=== PATIENT | male | born 1945 | race Caucasian/White ===

== ENCOUNTER 2017-03-01 05:37 | Inpatient (IN) | payer MEDICARE ==
--- NOTE | 2017-02-23 10:07 | HP ---
HISTORY OF PRESENT ILLNESS: Mr. White is a 71-year-old male who presents with pain in the lumbar spine and cervical neck. He use to have cervical radiculopathy, but since he has been getting epidural steroid injections, his cervical symptoms have resolved. Low back pain and thoracic pain are bilaterally. He has had L1-L5 lamine[place] [address] Anthony. The pain is characterized as a burning sensation. He is having some symptoms of neurogenic claudication. He had trouble going from sitting to standing, which seems to aggravate the pain. The pain is made slightly better with lying down on the floor and his legs up. He had physical therapy and has had several L- spine injections with Dr. Koo. He has had occasional loss of control of his legs, 5-6 times in the past month he has been standing and experienced warm tingling sensation of the sacrum and anterior thighs. This has eventually progressed to loss of control of his legs. To get rid of this sensation he lies down in the position, pulls his knees to his chest. After a minute or 2 the sensation is gone and the legs work again. There is no arm sensations at that time. Second his neck hurts. The pain radiates from the left greater than the right shoulder. There is numbness in the left ring and smallest finger. Sometimes there is some numbness on the right as well. REVIEW OF SYSTEMS: A 10-point review of systems completed is otherwise negative unless stated above in the HPI. PAST MEDICAL HISTORY: Arthritis and joint problems. PAST SURGICAL HISTORY: Back surgery, neck surgery. FAMILY HISTORY: Father is , diagnosed with cancer. His mother is , diagnosed with unknown. SOCIAL HISTORY: The patient is a nonsmoker, denies any alcohol or drug use. MEDICATIONS: 1. Taking terazosin HCL. 2. Avodart. 3. Hydrocodone acetaminophen. ALLERGIES: No known drug allergies. PHYSICAL EXAMINATION: HEENT: Normocephalic, atraumatic. Hearing intact. Moist mucous membranes. Trachea is midline. EYES: Pupils are equal and reactive to light. Extraocular muscles are intact. Sclerae is white, nonicteric. PSYCHIATRIC: Normal mood and affect. CARDIOVASCULAR/PULMONARY: No cyanosis or clubbing noted. Intact pedal pulses bilaterally. MUSCULOSKELETAL: 5/5 strength in bilateral iliopsoas, quadriceps, hamstrings, right tibialis anterior and extensor hallucis longus. Sensory deficits to bilateral L3 nerve distribution. Tender to palpation in the midline lumbar spine. EXTREMITIES: Upper extremity, 5/5 strength in bilateral biceps and triceps. Full range of motion. No sensory deficits bilaterally. RESPIRATORY: Even respirations all lung freed, sound clear with no wheezing or crackles. NEUROLOGIC: Cerebellar exam: There is no truncal ataxia. Gait and station are normal. Tandem gait is off balance. Motor exam: There is normal motor in deltoids, biceps, triceps, wrist extensors, flexors and interossei. No sensory level on the back. Reflex exam; 1 BF clonus bilaterally. IMAGING: C3-4, 4-5, 7-1 stenosis prior C5-C7 fusion elsewhere. T-spine MRI; T11-12 stenosis with cord compression and moderate T10-11 stenosis. L-spine; open canal foraminal disease at L1-L5. ASSESSMENT: 1. 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 2. Spinal stenosis, thoracic region. 3. Spinal stenosis of the cervical region. PLAN: EMG and NCV have been obtained. Dr. Anthony reviewed the EMG. Plan; most concerned about the sciatic leg weakness and falls, altered sensation from the waist down, incontinence. Dr. Anthony offered a thoracic laminectomy T8 through T12 for thoracic spinal stenosis. Informed consent was given. The indications, risks, benefits, alternatives, and expected results from surgery were discussed. The risks of the procedure include, but were not limited to bleeding, infection, CSF leak, nerve damage, weakness, cauda equina injury, incontinence, spinal cord injury, arachnoiditis, paralysis, ventilator dependence, wheelchair dependence, loss of vision, cardiopulmonary complications of anesthesia or . Long-term complications discussed included, but were not limited to spinal instability and future surgery. He understands the risk and is willing to proceed with the surgery. JIM
[2017-02-28 12:25] VITALS: BMI 33.3
[2017-03-01] MEDS ORDERED: Midazolam HCl 2 mg/2 ml Vial ONE (06:12)
[2017-03-01] MEDS ORDERED: Fentanyl 100 MCG/2 ML VIAL ONE ×3 (06:12→11:47)
[2017-03-01] MEDS ORDERED: Lidocaine 1% w/Epinephrine 1:200K 30 ML VIAL ONE (06:21)
[2017-03-01] MEDS ORDERED: Thrombin 5000 UNITS/5 ML VIAL ONE ×2 (06:21→12:43)
[2017-03-01] MEDS ORDERED: Sodium Chloride 0.9% 10 ML ONE (06:21)
[2017-03-01] MEDS ORDERED: Fentanyl 250 MCG/5 ML VIAL ONE (06:23)
[2017-03-01] MEDS ORDERED: Sodium Chloride 0.9% 20 ML ONE (06:25)
[2017-03-01] MEDS ORDERED: Bupivacaine 0.25% HCL 30 ML VIAL ONE (06:25)
[2017-03-01] MEDS ORDERED: Bupivacaine PF 0.5% 30 ML VIAL ONE (06:25)
[2017-03-01 06:33] LABS: #Basophils 0.1 thou/uL (0.0-0.2); #Eosinphils 0.4 thou/uL (0.0-0.7); #Lymphocytes 1.9 thou/uL (1.20-3.40); #Monocytes 0.8 thou/uL (0.11-0.59); %Basophils 0.8 % (0.0-1.0); %Eosinophils 4.9 % (0.0-10.0); %Lymphocytes 23.2 % (21.0-51.0); %Monocytes 9.8 % (0.0-10.0); %Neutrophils 61.4 % (42.0-75.0); Hemoglobin 14.1 g/dL (14.0-18.0); Mean Corpuscular HGB CONC 33.3 g/dL (32.0-36.0); Mean Corpuscular Hemoglobin 30.5 pg (27.0-31.0); Mean Corpuscular Volume 91.6 fl (80.0-94.0); Mean Platelet Volume 7.1 fL (7.4-10.4); Platelet Count 222 thou/uL (130-400); RBC Distribution Width 12.5 % (11.5-14.5); Red Blood Cell (RBC) Count 4.64 mill/uL (4.70-6.10); White Blood Cell (WBC) Count 8.2 thou/uL (4.8-10.8)
[2017-03-01 06:40] LABS: INR-International Normal Ratio 1.1; PTT 36.9 SEC (22.9-36.1); Prothrombin Time 14.3 SEC (12.0-14.7)
[2017-03-01] MEDS ORDERED: CEFAZOLIN/Water 2 GM/20 ML SYRINGE ONE (06:49)
[2017-03-01 07:18] LABS: Anion Gap 13 mmol/L (10-20); BUN (Urea Nitrogen) 21 mg/dL (8.4-25.7); Calc. Creatinine Clearance 62 mL/min (70-130); Calcium 9.8 mg/dL (7.8-10.44); Carbon Dioxide 23 mmol/L (23-31); Chloride 104 mmol/L (98-107); Estimated GFR-MDRD 48; Glucose 117 mg/dL (80-115); Potassium 3.9 mmol/L (3.5-5.1); Sodium 136 mmol/L (136-145)
[2017-03-01] MEDS ORDERED: Scopolamine 1.5 mg/72 hour Patch ONE (08:21)
[2017-03-01] MEDS ORDERED: Albumin 5% 500 ML ONE (09:38)
[2017-03-01] MEDS ORDERED: Meperidine HCl/PF 25 MG/ML VIAL SLOW IVP PRN (10:03)
[2017-03-01] MEDS ORDERED: Morphine Sulfate 2 MG/ML SYRINGE SLOW IVP PRN (10:03)
[2017-03-01] MEDS ORDERED: HYDROmorphone 2 MG/ML VIAL SLOW IVP PRN (10:03)
[2017-03-01] MEDS ORDERED: Promethazine HCl 25 MG/ML VIAL SLOW IVP PRN (10:03)
[2017-03-01] MEDS ORDERED: Glycopyrrolate 0.2 MG/ML 5 ML SYRINGE ONE ×2 (10:33→12:43)
[2017-03-01] MEDS ORDERED: Bacitracin Zinc Ointment 30 gm TUBE ONE (10:40)
[2017-03-01] MEDS ORDERED: Acetaminophen/Codeine 30-300mg Tablet PO PRN (10:44)
[2017-03-01] MEDS ORDERED: Cyclobenzaprine 10 MG TAB PO PRN (10:44)
[2017-03-01] MEDS ORDERED: Ondansetron HCl/PF 4 MG/2 ML Vial IVP PRN (10:44)
[2017-03-01] MEDS ORDERED: Morphine 4 MG/ML Carpuject SLOW IVP PRN (10:44)
[2017-03-01] MEDS ORDERED: OXYCODONE HCL PO PRN (10:47)
[2017-03-01] MEDS ORDERED: Docusate 100 MG CAP PO PRN (10:47)
--- NOTE | 2017-03-01 12:00 | OP ---
DATE OF PROCEDURE: 03/01/2017 SURGEON: Rubina Anthony M.D. CHIP TUNER: Wilton Horvath PA-C. PREOPERATIVE INDICATION: Prevent neurological deterioration. 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 OPERATIVE PROCEDURE: Decompressive laminectomy, partial medial facetectomy and foraminotomy at T9, T 10, T11, T12. PREOPERATIVE MEDICATION: Ancef 2 grams IV. DRAIN NUMBER: One. DRAIN TYPE: 10 [place]. OPERATIVE DICTATION: The patient was brought to the operating room. General endotracheal anesthesia was induced. The patient was carefully positioned prone on gel-filled chest rolls. A lateral fluor o radiograph was used to count level all the way up to our planned incision. We marked our incision and then sterilely prepped and draped the skin. We opened with a 10 blade knife and controlled bleed ing with bipolar and monopolar cautery. We used monopolar cautery to dissect through the subcutaneou s tissues to the thoracodorsal fascia. We incised the fascia in the midline and reflected the parasp inal muscles off the spinous process and lamina at T8, T9, T10, T11 and superior portion of T12. Kate f-retaining retractors were placed. A lateral fluoro radiograph was used to confirm the levels upon which we were operating. We then used an Adson rongeur to remove the spinous processes from T8-T11 a nd the superior portion of T12. We used an angled curet to identify the deep margin of the laminae a nd then Kerrison rongeur to fashion a laminectomy down the midline. We widened our laminectomy defec t until we ran into the facet joints. Here we carefully performed medial facetectomies until we were lateral to the dura. Once we could identify the lateral margin of the dura and the exiting nerve ro ots at each of the levels as well as being flush with the pedicles we deemed the width of the decompr ession adequate. Removal of yellow ligament, decompressed the lateral recesses under no further comp ression on the dura. We checked our decompression by passing a ball probe through the lateral recess and out the foramen at each of the levels. We ensured excellent hemostasis in the epidural space. We waxed the bone edges. Our decompression was secured at T8, T9, T10, T11 and the superior portion of T12. We tunneled a drain inferiorly through a separate stab incision. We treated the wound with v ancomycin powder and we closed the wound in anatomic layers over a drain. This was a clean case and no contamination.
[2017-03-01] MEDS ORDERED: PROPOFOL 200 MG/20 ML VIAL ONE (12:43)
[2017-03-01] MEDS ORDERED: Labetalol 100 MG/20 ML MDV ONE (12:43)
[2017-03-01] MEDS ORDERED: ePHEDrine/0.9% NaCl/PF SYRINGE 50 mg/10 ml ONE (12:43)
[2017-03-01] MEDS ORDERED: Lidocaine 1% PF 5 ML VIAL ONE (12:43)
[2017-03-01] MEDS ORDERED: PHENYLEPHRINE-NS 100 MCG/ML 10 ML SYRINGE ONE ×2 (12:43)
[2017-03-01] MEDS ORDERED: CEFAZOLIN 1 GM VIAL ONE (12:43)
[2017-03-01] MEDS ORDERED: Sterile Water 10 ML VIAL ONE (12:43)
[2017-03-01] MEDS ORDERED: EPINEPHrine 1 MG/10 ML Abboject SYRINGE ONE (12:43)
[2017-03-01] MEDS ORDERED: Dexamethasone 20 MG/5 ML VIAL ONE (12:43)
[2017-03-01] MEDS ORDERED: Ondansetron HCl/PF 4 MG/2 ML Vial ONE (12:43)
[2017-03-01] MEDS: CEFAZOLIN/Water 2 GM/20 ML SYRINGE SLOW IVP SCH ×2 (13:52→21:53)
[2017-03-01] MEDS: Sodium Chloride 0.9% 1,000 ML IV SCH (16:39)
[2017-03-01] MEDS: hydrALAZINE 25 MG TAB PO SCH ×2 (16:53→21:55)
[2017-03-01] MEDS: Acetaminophen/Codeine 30-300mg Tablet PO PRN ×2 (19:08→21:53)
[2017-03-01] MEDS ORDERED: Atorvastatin Calcium 40 MG TAB PO SCH (21:00)
[2017-03-01] MEDS ORDERED: Terazosin HCl 5 MG CAP PO SCH (21:00)
[2017-03-01] MEDS: DULoxetine 60 MG CAP PO SCH (21:53)
[2017-03-01] MEDS: Metoprolol Tartrate 50 MG TAB PO SCH (21:54)
[2017-03-01] MEDS ORDERED: Morphine 2 MG/ML SYRINGE SLOW IVP PRN (22:04)
[2017-03-01] MEDS ORDERED: Morphine 5 MG/ML SYRINGE SLOW IVP PRN (22:04)
--- NOTE | 2017-03-01 23:42 | EKG ---
Test Reason : PREOP Blood Pressure : / mmHG Vent. Rate : 060 BPM Atrial Rate : 060 BPM P-R Int : 150 ms QRS Dur : 098 ms QT Int : 438 ms P-R-T Axes : 042 007 106 degrees QTc Int : 438 ms Sinus rhythm with Premature atrial complexes T wave abnormality, consider lateral ischemia Abnormal ECG When compared with ECG of 01-SEP-2010 13:09, Premature atrial complexes are now Present T wave inversion now evident in Lateral leads Confirmed by Yaw AMARO ([id number]) on 03/01/2017 11:41:57 PM Referred By: SERINA Confirmed By:Yaw AMARO
[2017-03-02] MEDS: Sodium Chloride 0.9% 1,000 ML IV SCH (00:05)
[2017-03-02] MEDS: CEFAZOLIN/Water 2 GM/20 ML SYRINGE SLOW IVP SCH (06:36)
[2017-03-02] MEDS: Acetaminophen/Codeine 30-300mg Tablet PO PRN (06:36)
--- NOTE | 2017-03-02 07:29 | DIS ---
DATE OF ADMISSION: 03/01/2017 DATE OF DISCHARGE: 03/02/2017 ADMISSION DIAGNOSES: Multilevel stenosis with lower thoracic myelopathy. DISCHARGE CONDITION: The patient is stable. He is able to ambulate, tolerate regular diet. CONSULTATIONS: Patient had no consults. PROCEDURES: Decompressive laminectomy, partial medial facetectomy, and foraminotomy at [id number] 2. All images were taken intraoperatively. HISTORY OF PRESENT ILLNESS: Mr. White is a 71-year-old male who presents with thoracic myelopath y. He has had epidural steroid injections that did not seem to help. He has had a prior lumbar deco mpression with Dr. Anthony in 2010. He currently has neurogenic claudication and burning sensation in his thighs. He has tried alternative therapy and has resorted to surgical option for correction of the myelopathic symptoms. HOSPITAL COURSE: There were no acute events during his hospital stay. He was able to ambulate, tole rate a regular diet. His pain is well controlled with pain medication. A drain was placed intraoper atively and there have been a 65 mL out overnight. We will discontinue the drain before he leaves [facility]. PHYSICAL EXAMINATION: HEENT: Normocephalic, atraumatic. Hearing intact. Moist mucous membranes. Trachea is midline. EYES: Pupils are equal and reactive to light. Extraocular muscles are intact. Sclerae is white, no nicteric. RESPIRATORY: The patient has bilateral symmetric chest rise, appears to have no shortness breath. NEUROLOGIC: Cranial nerves II-XII were grossly intact. Speech is fluent. He answers my questions a ppropriately. The patient has 5/5 strength bilaterally in lower extremities, is able to ambulate wit h no problems. ACTIVITY: The patient can have regular activity with restrictions of bending, lifting, twisting, tur bell or lifting more than 15 pounds. DIET: The patient can have a regular diet. HOME MEDICATIONS: Metoprolol tartrate, terazosin HCL, duloxetine, citalopram, oxycodone HCL, hydrala zine HCL, atorvastatin, calcium, Metformin HCL, losartan/ hydrochlorothiazide, cyclobenzaprine, aceta minophen with codeine.
--- NOTE | 2017-03-02 07:33 | PRG ---
DATE OF SERVICE: 03/02/2017 Mr. White is 1 day out from multiple segment thoracic laminectomy for lower thoracic spinal cord compression and myelopathy. His back is sore from surgery. He has not had any neurological deterior ation, his legs are working well. Looking for drain output this morning and do not find it either on the white board in the room or on the computer. The drain was recently emptied. Neurologic functio n in lower extremities is preserved and the dressing is dry. My plan today is to have Mr. White participate in all activities of daily living. If he can eat, walk, toilet himself, shower and dress safely, then we can start plans for discharge today. The drain output needs to be less than 5 mL an hour on average. We will continue antibiotics until the drain is out.
[2017-03-02] MEDS ORDERED: metFORMIN 500 MG TAB PO SCH (08:00)
[2017-03-02] MEDS ORDERED: Citalopram 20 MG TAB PO SCH (09:00)
[2017-03-02] MEDS ORDERED: Losartan/Hydrochlorothiazide 100 mg/25 mg Tablet PO SCH (09:00)
[2017-03-02 09:11] VITALS: TEMP 98.2
[2017-03-02] MEDS: Metoprolol Tartrate 50 MG TAB PO SCH (09:13)
[2017-03-02] MEDS: DULoxetine 60 MG CAP PO SCH (09:13)
[2017-03-02] MEDS: hydrALAZINE 25 MG TAB PO SCH (09:13)
[2017-03-02 13:01] VITALS: BP 138/74
[2017-03-02] MEDS ORDERED: Tamsulosin HCl 0.4 MG CAP PO SCH (14:30)
[2017-03-21 08:03] LABS: Actual Bicarbonate (HCO3a) 22.1 mEq/L (22-26); CO2 Tension 38.7 mmHg (35.0-45.0); O2 Tension (PaO2) 255.6 mmHg (80.0-100.0); pH, Arterial 7.37 (7.35-7.45)
[2017-03-21 08:04] LABS: Base Excess (BEa) -2.8 mEq/L (0 (+/-) 2.5); Hematocrit-ABG 38.1 % (42.0-52.0); Hemoglobin (Hb) 13.1 g/dL (14.0-18.0)
[2017-03-21 08:05] LABS: Analyzer IN Cardio OR; Calcium, Ionized 1.3 mmol/L (1.12-1.30); Puncture Site ALINE
== END 2017-03-02 17:42 | disposition home or self-care (01) | DRG 519 ==
LOC: SDC 05:37 → SURG B 10:44
PROVIDERS: ADMIT Neurological Surgery; ATTEND Neurological Surgery
PROC: 00NX0ZZ Release Thoracic Spinal Cord, Open Approach (ICD-10-PCS; principal; 2017-03-01)
DX: M47.14 Other spondylosis with myelopathy, thoracic region (principal); G95.29 Other cord compression; M48.02 Spinal stenosis, cervical region; M48.04 Spinal stenosis, thoracic region; M47.816 Spondylosis without myelopathy or radiculopathy, lumbar region; G56.03 Carpal tunnel syndrome, bilateral upper limbs
CPT/HCPCS: 36415; 36416; 76001; 80048; 82805; 85025; 85610; 85730; 86850; 86900; 86901; 93005; 93010; J2270; A4216; J0171; J0690; J1100; J2001; J2250; J2405; J2704; J3010; J3370; J3490; P9045; S0020

== ENCOUNTER 2017-03-08 22:13 | Inpatient (IN) | payer MEDICARE ==
[2017-03-08] MEDS ORDERED: Morphine 5 MG/ML SYRINGE SLOW IVP PRN ×2 (22:34)
[2017-03-08] MEDS ORDERED: Cyclobenzaprine 10 MG TAB PO PRN (22:34)
[2017-03-08] MEDS ORDERED: Acetaminophen/Codeine 30-300mg Tablet PO PRN ×2 (22:34)
[2017-03-08] MEDS ORDERED: Ondansetron HCl/PF 4 MG/2 ML Vial IVP PRN (22:34)
[2017-03-09 00:58] VITALS: BMI 32.4
--- NOTE | 2017-03-09 03:55 | HP ---
HISTORY OF PRESENT ILLNESS: Mr. White is a 71-year-old male, who originally presented to our off ice at [facility] with lumbar spine and cervical neck pain. He had a low back p ain and thoracic pain bilaterally. He had a history of previous L5-S1 laminectomy in [address] Remberto seay. He had pain characterized as a burning sensation in the thoracic and low back, having symp toms of neurogenic claudication. He is off balance with tandem walk and has trouble going from sitti ng to standing, which seems to be aggravating the back pain. The pain is made slightly better with l chelsie down on the floor with his legs out. He recently had a surgical intervention to treat the sympt oms of neurogenic claudication on 03/01/[address] Anthony to prevent neurological de terioration. The operation consisted of decompressive laminectomy and partial medial facetectomy, an d foraminotomy at T9, T10, T11, T12. Postoperatively, he was doing well in the hospital. He was abl e to ambulate, tolerate regular diet and his pain is well controlled with pain medication. Postopera tively, he had some urinary retention and Flomax was given and relieved the urinary retention. After he was discharged from the hospital, he was admitted to [facility] after having se izure-like episodes. The patient now complains of intermittent lightheadedness and double vision. I t seems that his tandem gait and walking have gotten more off balance on physical exam. An MRI of th e lumbar spine was completed at [facility] and it showed extensive and completely e valuated him presumed to be a fluid collection in the lower thoracic spine posterior epidural in loca tion as well as the posterior paraspinal soft tissues. An MRI of the thoracic spine is recommended a nd we will be ordering that stat. Patient was transferred to [facility] to be evaluated by Neurosurgery from [facility]. REVIEW OF SYSTEMS: The patient complains of double vision. Complains of lightheadedness, complains of being off balance. Ten-point review of systems is completed, and is otherwise negative unless sta gerda in the above HPI. PAST MEDICAL HISTORY: Arthritis, joint problems, low back, and thoracic back pain. PAST SURGICAL HISTORY: Lumbar laminectomy in [address] Anthony, past neck surgery. FAMILY HISTORY: Father is , diagnosed with cancer. His mother is . SOCIAL HISTORY: The patient is a nonsmoker, denies any alcohol or drug use. MEDICATIONS: Taking; 1. Terazosin hydrochloride. 2. Avodart. 3. Hydrocodone/acetaminophen. ALLERGIES: BENZODIAZEPINE and LORAZEPAM. PHYSICAL EXAMINATION: HEENT: Normocephalic, atraumatic. Hearing intact. Moist mucous membranes. Trachea is midline. Ey es: Pupils are equal and reactive to light. Extraocular muscles are intact. Sclerae is white, eduardo cteric. He has lateral nystagmus when looking to the left or right. PSYCHIATRIC: Normal mood and affect. CARDIOVASCULAR/CARDIOPULMONARY: No cyanosis or clubbing noted. Intact pedal pulses bilaterally. SKIN: The patient has bruises over the left forearm. MUSCULOSKELETAL: A 5/5 strength in bilateral iliopsoas, quadriceps, hamstrings, right tibialis anter ior and extensor hallucis longus. Sensory deficits to the L3 nerve distribution have resolved since surgery. The patient has a thoracic incision is closed with vertical mattress sutures and it is fidel n, dry, and intact. EXTREMITIES: A 5/5 strength in bilateral biceps and triceps. Full range of motion, no sensory defic its bilaterally. RESPIRATORY: The patient has bilateral symmetric chest rise. Appears to have no shortness of breath . NEUROLOGIC: Cerebellar exam: There is no truncal ataxia. Gait and station are off balance. Tandem gait is off balance. Motor exam: There is normal motor in the deltoids, biceps, triceps, wrist ext ensors, flexors, and interossei. There is no sensory level on back. The thoracic and lumbar spine i s intact to pain, temperature, and light touch. He has 1 BF clonus bilaterally. ASSESSMENT: 1. Spondylosis thoracic spine with myelopathy. 2. Spinal stenosis of the thoracic and lumbar region. 3. Spinal stenosis of the cervical region. PLAN: We will order an MRI of the thoracic spine with contrast, so we can see to what extent the flu id collection goes caudally. Dr. Anthony will see and evaluate the patient in the morning and disc uss further plan with the patient. If there are any further questions, please feel free to contact [facility].
--- NOTE | 2017-03-09 08:29 | PRG ---
DATE OF SERVICE: 03/09/2017 I personally interviewed and examined the patient and agree with documentation of Wilton Horvath PA-C, dated 03/08/2017. Briefly, Avtar White underwent thoracic laminectomy last week with us and was discharged from the hospital 2 days later. During his convalescence at home , he began to behave strangely and had seizure activity and was admitted to [facility]. MR imaging suggested a fluid collection at the site of the surgery. He had a moderate leukocytosis and they were concerned about an infectious process. Mr. White was on oxycodone until the operation and ceased using that medication abruptly thereafter. Today, Mr. White is wide awake, he is alert, he is making sense. He has no dysphasia. His cranial nerves are intact. He has no lateralizing motor or sensory deficits. He has no deficits from the thoracic levels down. His neurological function is as good as or better than pre-op. His incision looks quite good, it is healing up very nicely, and MR imaging shows a fluid collection in the site of the surgery, but I do think it is terribly compressive. There is the expected post-op enhancement. My assessment is that Mr. White may have had oxycodone withdrawal symptoms, potentially including the seizure activity, and he has recovered from that. He is back to his neurological baseline. He has no deficits related to the fluid collection. He has urinary retention from surgery, narcotics, and prostate issues. He had prostate pain with the placement and replacement of the catheter. My plan is to check a sed rate, a CRP, a CBC, and some chemistry panels. I will leave the catheter in and make an outpatient appointment with Urology. I would like to watch him at least another 24 - 48 hours in the hospital and make sure he does not regress. We will advance his diet and I am not currently planning surgical intervention. We can aspirate fluid for gram stain and culture to be sure we are not missing infection. Addendum: There is no elevated WBC. The sed rate is marginally up from surgery 1 week ago, as is the CRP. We will follow the wbc, sed rate, crp in on week. [facility]
[2017-03-09 08:30] LABS: #Basophils 0.1 thou/uL (0.0-0.2); #Eosinphils 0.3 thou/uL (0.0-0.7); #Lymphocytes 1.5 thou/uL (1.20-3.40); #Neutrophils 6.2 thou/uL (1.40-6.50); %Basophils 0.7 % (0.0-1.0); %Eosinophils 3.7 % (0.0-10.0); %Lymphocytes 16.4 % (21.0-51.0); %Monocytes 11.1 % (0.0-10.0); %Neutrophils 68.1 % (42.0-75.0); Hemoglobin 10.4 g/dL (14.0-18.0); Mean Corpuscular HGB CONC 32.9 g/dL (32.0-36.0); Mean Corpuscular Hemoglobin 30.4 pg (27.0-31.0); Mean Corpuscular Volume 92.6 fl (80.0-94.0); Mean Platelet Volume 6.5 fL (7.4-10.4); Platelet Count 313 thou/uL (130-400); RBC Distribution Width 12.8 % (11.5-14.5); Red Blood Cell (RBC) Count 3.43 mill/uL (4.70-6.10); White Blood Cell (WBC) Count 9.1 thou/uL (4.8-10.8)
[2017-03-09 08:46] LABS: Anion Gap 9 mmol/L (10-20); BUN (Urea Nitrogen) 10 mg/dL (8.4-25.7); CRP (Inflammatory) 2.75 mg/dL (= or < 0.5); Calc. Creatinine Clearance 77 mL/min (70-130); Carbon Dioxide 27 mmol/L (23-31); Chloride 105 mmol/L (98-107); Estimated GFR-MDRD 64; Glucose 111 mg/dL (80-115); Potassium 3.7 mmol/L (3.5-5.1); Sodium 137 mmol/L (136-145)
--- NOTE | 2017-03-09 09:14 | MRI ---
PRELIMINARY REPORT/[facility]/EMERGENCY AFTER HOURS PROCEDURE: Addendum created by Jarad Hernandez MD on 03/09/2017 4:21 AM Central Time ([place]) THIS REPORT CONTAINS FINDINGS THAT MAY BE CRITICAL TO PATIENT CARE. The findings were verbally commun icated via telephone conference with Lindy Mcgovren RN and Wilton Henderson at 4:20 AM RECLAIMER on 8. The findings were acknowledged and understood. Initial Report created on 03/09/2017 3:27 AM Central Time ([place]) EXAM: MR Thoracic Spine Without and With Intravenous Contrast EXAM DATE/TIME: Exam ordered 03/09/2017 1:53 AM CLINICAL HISTORY: 71 years old, male; Pain; Pain in thoracic spine; Other: After l-spine surgery pain in the back; Prio r surgery; Surgery date: <1 month; Surgery type: Lumbar surgery; Patient HX: After back surgery on back pain TECHNIQUE: Magnetic resonance images of the thoracic spine without and with intravenous contrast in multiple chata les. CONTRAST: 18 mL of multihance administered intravenously. COMPARISON: No relevant prior studies available. FINDINGS: Vertebrae: Transpedicular screws are noted in the cervical spine. No acute fracture. Discs/spinal canal/neural foramina: There is marked inflammation with circumferential epidural enhanc ement of the thoracic spine extending from about T8-T12 resulting in narrowing of the spinal canal. Spinal cord: Normal. Normal signal. No abnormal enhancement. Soft tissues: There is nonspecific edema within the soft tissues posterior to the spine in this patie nt post laminectomy. IMPRESSION: There is marked inflammation with circumferential epidural enhancement of the thoracic spine extendin g from about T8-T12 resulting in narrowing of the spinal canal. Differential diagnosis includes infec tion and neoplasm. Correlate clinically with prior surgery. Thank you for allowing us to participate in the care of your patient. Dictated and Authenticated by: Jarad Hernandez MD 03/09/2017 3:27 AM Central Time ([place]) FINAL REPORT MRI OF THORACIC SPINE WITH AND WITHOUT CONTRAST: Date: 03-09-17 History: Pain, prior surgery. Technique: Multiplanar, multisequence MR imaging of the thoracic spine is obtained with and without c ontrast. FINDINGS: I agree with the preliminary [facility] report dictated by Dr. Jarad Hernandez. Anterior discectomy and fusion hardware is present within the cervical spine at C5-6 and C6-7 levels, not well assessed on this exam. There is prominent degenerative change at C2-3, C3-4 and C4-5 with a ssociated central canal stenosis. Secondary to motion artifact, detailed assessment for central canal and/or neural foraminal stenosis is suboptimal. There is a small left paracentral disc protrusion at T2-3 with mild associated central canal stenosis . There is disc bulge at T6-7 with an associated left paracentral disc protrusion causing a mild degr ee of central canal stenosis/left lateral recess stenosis. At T7-8 there is a small left paracentral disc protrusion. At T8-9, T9-10, T10-11 and T11-12 there is disc space narrowing, disc desiccation and disc bulge whic h effaces the ventral thecal sac and abuts the ventral aspect of the cord at all of these levels. The patient appears status post bilateral laminectomy from the T8-9 level through the T12-L1 level. Ther e is a posterior epidural lesion spanning the mid T8 level through the T12-L1 level, measuring 10 cm in craniocaudal dimension x 1.1 cm in AP dimension x 1.5 cm in transverse dimension. This large poste rior epidural fluid collection exerts mass effect on the posterior aspect of the thecal sac from T8-9 through T12-L1 with associated significant diffuse central canal stenosis. The post contrast imaging demonstrates the entirety of this posterior epidural lesion to be hyperintense. When compared to a l umbar spine MRI performed with and without contrast on 03-08-17, the visualized portions of the epidur al lesion were hypointense suggesting extensive associated solid appearing enhancement. In addition t o this, there is circumferential epidural enhancement which is seen from the T4-5 level down to the L 1 level. The posterior paraspinal musculature in the post-operative region from T8 to T12-L1 is diffusely T2 h yperintense and demonstrates enhancement. In addition, there is a fluid collection centered in the edmond bcutaneous fat superficial to the post-operative paraspinal musculature, which also demonstrates diff use enhancement. This abnormality within the subcutaneous fat measures at least 16 cm in craniocaudal dimension. There is no evidence for discitis or osteomyelitis. Small bilateral pleural effusions are noted, right greater than left. IMPRESSION: The patient is status post bilateral laminectomy from T8-9 through T12-L1. In this region there is a large enhancing posterior epidural lesion, likely on the basis of infection/phlegmon. Tumor cannot be excluded in the proper clinical setting but is felt unlikely. In addition to the localized posterior epidural lesion spanning T8 through L1, there is circumferential epidural enhancement which extends to the T4 level and down to the L1 level, suggesting extensive epidural enhancement on the basis of i nfection/infected hematoma. No evidence for discitis or osteomyelitis. The disc disease as well as th e posterior epidural lesion at T8 through L1 causes severe central canal stenosis. The T2 hyperintens ity and enhancement of the posterior paraspinal musculature from T8 through L1 suggests infectious my ositis and extensive overlying subcutaneous fat. Signal abnormality is concerning for diffuse associa gerda cellulitis. Code QA POS: SCOUT
--- NOTE | 2017-03-09 13:30 | OP ---
DATE OF PROCEDURE: 03/09/2017 INDICATIONS: Mr. White is a 71-year-old male who I saw in his room this morning. He had a [facility] MRI that showed an epidural and subcutaneous fluid collection around the lower thoracic and upper lumbar spine. PROCEDURE PERFORMED BY: Wilton Horvath PA-C under supervision from Dr. Anthony. PREOPERATIVE DIAGNOSIS: Subcutaneous fluid collection over lower thoracic region. POSTOPERATIVE DIAGNOSIS: Subcutaneous fluid collection over lower thoracic region. OPERATION PERFORMED: Aspiration of the body fluid from subcutaneous fluid collection of the lower th oracic back. PROCEDURE IN DETAIL: I obtained consent from Mr. White, a 71-year-old male, to aspirate fluid fr om the lower thoracic spine. I discussed the risks, benefits, and possible complications of aspirati ng fluid. I discussed that I will be sending the fluid in a sterile specimen container to the lab to be analyzed with Gram stain culture and cell count differential. The patient gave consent for the o peration. I prepped the back with Betadine and waited 3 minutes and then a stuck an 18 gauge needle to the left of midline thoracic back into the subcutaneous fluid collection approximately 3/4 of an i nch below the surface of the skin. 15 mL of fluid was obtained and put in a sterile specimen cup and sent to lab for culture and sensitivity. This was a sterile operation. There was no blood loss.
[2017-03-09 13:45] LABS: BF Color Red; Clarity Cloudy/Turbid (Clear); RBC Count-Automated 47000 /cumm; Tube # EDTA; WBC Background Count 0.01; WBC/NonHematic-Auto 1100 /cumm
[2017-03-09] MEDS: tiZANidine HCl 4 MG TAB PO SCH ×2 (14:10→20:19)
[2017-03-09] MEDS: hydrALAZINE 25 MG TAB PO SCH ×2 (14:10→20:21)
[2017-03-09 14:42] LABS: BF Segmented Neutrophils 88 %; Cell Count Non Hematic 12 %
[2017-03-09] MEDS ORDERED: Benzonatate 100 MG CAP PO PRN (17:37)
[2017-03-09] MEDS: Atorvastatin Calcium 40 MG TAB PO SCH (20:21)
[2017-03-09] MEDS: Terazosin HCl 5 MG CAP PO SCH (20:21)
[2017-03-09] MEDS: DULoxetine 60 MG CAP PO SCH (20:21)
[2017-03-09] MEDS: Metoprolol Tartrate 50 MG TAB PO SCH (20:22)
--- NOTE | 2017-03-10 06:49 | PRG ---
DATE OF SERVICE: 03/10/2017 Mr. White is a 71-year-old male I saw in his room this morning. There are no new neurologic defi cits on exam. He still has a Kinsey catheter in place and feels like his bladder remains full. His v ital signs have been stable overnight and there have been no acute events. Yesterday I took a sample of subcutaneous fluid that has accumulated in the lower thoracic region. This morning preliminary r esults of that body fluid shows rare white blood cells and no organisms seen. I will discuss with Dr Shelbi Anthony today and make plans or arrangements for him to go home. If there are any further questions, please feel free to contact Neurosurgery.
--- NOTE | 2017-03-10 07:27 | PRG ---
DATE OF SERVICE: 03/10/2017 I saw Mr. White this morning. Aspiration of subcutaneous fluid was done well and gram stains are negative. Cultures are pending. Overnight, Mr. White has not had any fevers. He remains neurologically intact in the lower extre mities. His Kinsey is in place. He did walk one time yesterday in the room. Today I am planning an ultrasound of lower extremities on Mr. White to rule out DVT. We will rubio t for culture results to be a more complete before deciding on disposition and we have a baseline i te blood counts, sed rate and CRP that we can follow up prospectively over time. I am not terribly c oncerned about infection. I think the enhancement within the MRI scan is regular postop inflammation . I think his wound would look much worse if this were infected fluid. We will be more sure about t his before discharge. My plan is to leave the Kinsey in have an outpatient [facility] to evaluate him for prostatic hypertrophy.
[2017-03-10] MEDS ORDERED: Prevnar 13-Val Conj/PF 0.5 ML SYRINGE IM ONE (09:00)
[2017-03-10] MEDS: DULoxetine 60 MG CAP PO SCH ×2 (09:06→20:01)
[2017-03-10] MEDS: tiZANidine HCl 4 MG TAB PO SCH ×3 (09:06→20:01)
[2017-03-10] MEDS: Losartan/Hydrochlorothiazide 100 mg/25 mg Tablet PO SCH (09:06)
[2017-03-10] MEDS: metFORMIN 500 MG TAB PO SCH (09:07)
[2017-03-10] MEDS: Metoprolol Tartrate 50 MG TAB PO SCH ×2 (09:07→20:01)
[2017-03-10] MEDS: hydrALAZINE 25 MG TAB PO SCH ×3 (09:07→20:00)
[2017-03-10] MEDS: Dutasteride 0.5 MG CAP PO SCH (09:08)
--- NOTE | 2017-03-10 10:04 | ULT ---
BILATERAL LOWER EXTREMITY VENOUS DOPPLER ULTRASOUND: Date: 03-10-17 Comparison: None. History: Immobility. Post-operative patient. Assess for DVT. Technique: Multiplanar grayscale sonographic imaging the venous structures of bilateral lower extremi ties obtained with color flow and spectral analysis. FINDINGS: Bilateral common femoral veins, greater saphenous veins, profunda femoral veins, femoral veins, popli teal veins and posterior tibial veins are patent. There is normal blood flow, augmentation, and compr ession within the deep venous system bilaterally. No evidence for deep venous thrombosis on either si de. IMPRESSION: No evidence for deep venous thrombosis of either lower extremity. POS: [facility]
[2017-03-10] MEDS ORDERED: Loperamide HCl 2 MG CAP PO PRN (18:41)
[2017-03-10] MEDS: Atorvastatin Calcium 40 MG TAB PO SCH (20:00)
[2017-03-10] MEDS: Terazosin HCl 5 MG CAP PO SCH (20:00)
--- NOTE | 2017-03-11 07:01 | PRG ---
DATE OF SERVICE: 03/11/2017 Mr. White is a 71-year-old male who I saw in his room this morning. Overnight his vital signs simons ve been stable. He in nonfebrile and he is ambulating and tolerating a regular diet. Yesterday he h ad 2 bouts of diarrhea in which he took Imodium that helped significantly. Today if his culture 48 h our culture results come back negative, we can consider sending him home. We will send him home with a Kinsey and have him follow up with his urologist in [place]. If there are any further questions, please feel free to contact Neurosurgery.
--- NOTE | 2017-03-11 07:28 | PRG ---
DATE OF SERVICE: 03/11/2017 NEUROSURGERY PROGRESS NOTE SUBJECTIVE: I saw Mr. White in his hospital room this morning. He is starting the 3rd hospital day with us. He has only mild fever recorded in the last 3 days with a T-max of 99.3. He has not simons d a white blood cell count here. He has elevated CRP and C-reactive protein from surgery a week ago. Mr. White is awake and alert this morning, he is walking around his room. His incision looks kae te good. He has not had any antibiotic therapy since he has been here. He feels well. On examination, I do not find any neurological deficits in the lower extremities. My plan is to watch the culture results to the 48 hour darius. If the cultures still negative at 48 ho urs, I am going to discharge home. Mr. White lives in [place] and will follow up in our [facility] clinic on Tuesday. The episode he had was related to withdrawal from a chronic oxycodone use im mediately after surgery and he is through this and back to feeling well. I do not believe the fluid collection in the spine is infected, but rather a postop seroma.
[2017-03-11] MEDS: hydrALAZINE 25 MG TAB PO SCH ×2 (08:51→17:04)
[2017-03-11] MEDS: tiZANidine HCl 4 MG TAB PO SCH ×2 (08:52→17:04)
[2017-03-11] MEDS: Metoprolol Tartrate 50 MG TAB PO SCH (08:52)
[2017-03-11] MEDS: DULoxetine 60 MG CAP PO SCH (08:52)
[2017-03-11] MEDS: Dutasteride 0.5 MG CAP PO SCH (08:52)
[2017-03-11] MEDS: Losartan/Hydrochlorothiazide 100 mg/25 mg Tablet PO SCH (08:52)
[2017-03-11] MEDS: metFORMIN 500 MG TAB PO SCH (08:52)
[2017-03-11 15:45] VITALS: TEMP 98.8
[2017-03-11 17:08] VITALS: BP 169/80
--- NOTE | 2017-03-14 08:22 | DIS ---
DATE OF ADMISSION: 03/08/2017 DATE OF DISCHARGE: 03/11/2017 ADMISSION DIAGNOSIS: Subcutaneous fluid collection of the lower thoracic spine. DISCHARGE DIAGNOSIS: Subcutaneous fluid collection in the lower thoracic spine. DISCHARGE CONDITION: The patient is stable, he is able to ambulate, tolerate regular diet. His pain is well controlled with pain medication. CONSULTATIONS: None. PROCEDURES: Subcutaneous fluid aspiration from the lower thoracic spine and subcutaneous tissue. BRIEF HISTORY OF PRESENT ILLNESS: Mr. White is a 71-year-old male, who has a history of L5-S1 la minectomy in [address] Anthony. He recently had a surgical intervention to treat symptoms of n eurogenic claudication on 03/01/[address] Anthony and myself to prevent neurologic deterioratio n. The operation consists of decompressive laminectomy, medial facetectomy, and foraminotomy at T9-T 12. Postoperatively, he is doing well in the hospital; however, after he was discharged, he was admi tted at [facility] for having seizure-like episode. This was likely related to wei cotic overuse. He was found to have a fluid collection in the subcutaneous tissue over the lower tho racic spine where the surgery was. He had lightheadedness and dizziness at that time and had double vision, which has resolved in the hospital. He was transferred to [facility] from [facility] to be evaluated. DISCHARGE PHYSICAL EXAMINATION: HEENT: Normocephalic, atraumatic. Hearing intact. Moist mucous membranes. Trachea is midline. Ey es: Pupils are equal and reactive to light. Extraocular muscles are intact. Sclerae is white and n onicteric. CARDIOVASCULAR: The patient has regular rate and rhythm, normal S1 and S2 heart sounds. No distal c yanosis or clubbing noted. Intact pedal pulses bilaterally in the upper and lower extremities. RESPIRATORY: The patient has bilateral symmetric chest rise. Appears to have no shortness breath. NEUROLOGIC: Cranial nerves II through XII are grossly intact. Speech is fluent. He answers my ques tions appropriately. He has no sensory or no motor deficits in the upper or lower extremities bilate rally. ACTIVITY: The patient can have regular activity on discharge with the exceptions of lifting more alyssa n 15 pounds and bending at the waist pushing or pulling weight. DIET: The patient can have a regular diet upon discharge. DISCHARGE HOME MEDICATIONS: Please see home medication list.
== END 2017-03-11 17:40 | disposition home or self-care (01) | DRG 920 ==
LOC: 2SE 22:13
PROVIDERS: ADMIT Neurological Surgery; ATTEND Neurological Surgery
PROC: 0J973ZX Drainage of Back Subcutaneous Tissue and Fascia, Percutaneous Approach, Diagnostic (ICD-10-PCS; principal; 2017-03-09)
DX: L76.34 Postprocedural seroma of skin and subcutaneous tissue following other procedure (principal); M47.14 Other spondylosis with myelopathy, thoracic region; M48.02 Spinal stenosis, cervical region; M48.05 Spinal stenosis, thoracolumbar region
CPT/HCPCS: 36415; 36416; 72157; 80048; 85025; 85060; 85652; 86140; 87070; 87205; 89051; 90471; 90670; 93970; G0009

== ENCOUNTER 2018-10-04 15:00 | Outpatient (CLI) | payer MEDICARE | END 2018-10-04 15:01 | disposition home or self-care (01) | LOC: SLEEPLAB 15:00 | PROVIDERS: ATTEND Internal Medicine Critical Care Medicine | DX: G47.33 Obstructive sleep apnea (adult) (pediatric) (principal); I10 Essential (primary) hypertension; R53.83 Other fatigue; G47.00 Insomnia, unspecified; G47.31 Primary central sleep apnea | CPT/HCPCS: 95806 ==

== ENCOUNTER 2018-11-19 04:37 | Inpatient (IN) | payer MEDICARE ==
[2018-11-19] MEDS ORDERED: Morphine 4 MG/ML VIAL ONE (06:21)
[2018-11-19] MEDS ORDERED: Acetaminophen 325 MG TAB PO PRN (07:01)
[2018-11-19] MEDS ORDERED: Acetaminophen 650 MG Suppository PR PRN (07:01)
--- NOTE | 2018-11-19 07:11 | PDOC.FPRHP ---
- History of Present Illness Chief Complaint: Abdominal pain, n/v History of Present Illness: Patient is a 73 yo male who presents to [facility] ED as a transfer from [facility] with complaints of abdominal pain, nausea, and dry heaving. For past 4 weeks patient states he has had increasing abdominal pain that originated in epigastric area but currently is more generalized. Over same period of time he has been nauseous. States every time he tries to eat or drink something that he vomits or dry heaves. Patient states that he has not had a good meal in 5 weeks. States in past month he has lost approx. 20 pounds. Patient states he recently saw his PCP and was told he had a "stomach infection" and was treated with Tetracycline course with last dose on , 11/16/18. He was also possibly taking a probiotic but is unsure. He is uncertain if infection was due to H. pylori or not. No other sick contacts. Denies fever/chills. Has had occasional diarrhea which was initially 3-4 weeks ago that resolved but then just started again with an episode in the ED. Patient remarks in ED that this diarrhea episode is the first BM he has had "in weeks". ED Course: Transfer from [facility] ED. Given IVF and Morphine [address] abdomen/ pelvis performed with report pending (unknown results) In [facility] ED received 8 mg Morphine, 1L NS bolus. - Allergies/Adverse Reactions Allergies Allergy/AdvReac Type Severity Reaction Status Date / Time lorazepam [From Ativan] Allergy Verified 11/19/18 19:46 - Home Medications Medication Instructions Recorded Confirmed Type Atorvastatin Calcium 40 mg PO HS 02/28/17 11/19/18 History Losartan/Hydrochlorothiazide 100 mg PO BID #0 02/28/17 11/19/18 History [Losartan-Hctz 100-25 mg Tab] Terazosin HCl 5 mg PO HS 02/28/17 11/19/18 History hydrALAZINE HCl [Hydralazine HCl] 50 mg PO TID 02/28/17 11/19/18 History tiZANidine HCl [Tizanidine HCl] 4 mg PO PRN PRN 03/09/17 11/19/18 History Buprenorphine HCl [Belbuca] 1 film PO BID 11/19/18 11/19/18 History Carvedilol [Coreg] 1 tab PO BID 11/19/18 11/19/18 History Citalopram [CeleXA] 1 tab PO DAILY 11/19/18 11/19/18 History Gabapentin 1 tab PO TID 11/19/18 11/19/18 History HYDROcodone Bit/APAP [Linden] 1 tab PO Q4HR PRN 11/19/18 11/19/18 History Isosorbide Mononitrate [Imdur ER] 1 tab PO DAILY 11/19/18 11/19/18 History Comments: Will need med rec completed. Patient states takes medicine for HTN, HLD, chronic pain. - History PMHx: HTN, HLD, CAD, chronic pain, glucose intolerance, depression PSHx: right knee, 2 cervical (recent in May 2018), back FHx: unknown Social: Denies EtOH or tobacco use. - Review of Systems General: reports: weight/appetite/sleep changes, fatigue. denies: fever/chills ENT: denies: nasal congestion Respiratory: denies: cough, congestion, shortness of breath Cardiovascular: denies: chest pain, edema Gastrointestinal: reports: nausea, vomiting, diarrhea, abdominal pain. denies: constipation Skin: denies: rashes, lesions Musculoskeletal: reports: pain. denies: swelling Neurological: denies: numbness, weakness - Vital signs BP: 147/81 HR: 79 RR: 18 Tmax: 98.6 mg Pox: 94% on RA Wt: 80 kg - Physical Exam Constitutional: NAD, awake, alert and oriented HEENT: normocephalic and atraumatic, EOMI, conjunctiva clear, grossly normal vision, grossly normal hearing -HEENT: membranes dry. missing multiple teeth Neck: supple, no JVD Chest: no-tender to palpation Heart: RRR, normal S1/S2, pulses present, no edema -Heart: grade I systolic murmur over aortic area Lungs: CTAB, no respiratory distress, good air movement, no rales/rhonchi, no wheezing Abdomen: soft, bowel sounds present, no masses/distention -Abdomen: TTP over epigastric, RLQ, and LLQ. Musculoskeletal: normal structure, normal tone Neurological: no focal deficit, normal sensation Skin: no rash/lesions, no jaundice -Skin: poor skin turgor Heme/Lymphatic: no unusual bruising or bleeding Psychiatric: normal mood and affect, intact recent and remote memory FMR H&P: Results - Labs Result Diagrams: 11/20/18 06:18 11/20/18 06:18 Lab results: Per [facility] ED report: WBC 12.8, BUN 65, Cr 2.3, Lipase 180, Amylase 193 - Radiology Interpretation CT scan - abdomen Status: report reviewed by me (Report pending in [facility]) FMR H&P: A/P - Problem List (1) Acute pancreatitis Current Visit: Yes Status: Acute Code(s): K85.90 - ACUTE PANCREATITIS WITHOUT NECROSIS OR INFECTION, UNSP Qualifiers: Pancreatitis type: unspecified pancreatitis type Acute pancreatitis complication: unspecified Qualified Code(s): K85.90 - Acute pancreatitis without necrosis or infection, unspecified (2) BERRY (acute kidney injury) Current Visit: Yes Status: Acute Code(s): N17.9 - ACUTE KIDNEY FAILURE, UNSPECIFIED (3) Dehydration, moderate Current Visit: Yes Status: Acute Code(s): E86.0 - DEHYDRATION - Plan Patient is a 73 yo male with complaint of abdominal pain and n/v who is admitted for pancreatitis and dehydration: #Acute Pancreatitis -Amylase 193, Lipase 180 -has received fluid bolus with 1L NS in both [facility] & [facility] -has received 4 mg in [facility] & 8 mg in [facility] of morphine -NPO diet -Morphine 4mg q4h prn for pain control -adjust pain control once home med rec -maintenance IV LR @ 200 ml/h -vitals q4hr -strict I/Os -CT abdomen in [facility], report pending -if diarrhea continues, consider stool studies -will check H. pylori stool antigen given questionable history of recent tx for H. pylori with Tetracycline #Acute Kidney Injury -BUN 65, Cr 2.3 per ED report -2L NS given so far -continue IV LR @ 200 ml/h #Dehydration, moderate -maintenance IVF -NPO diet per suspected pancreatitis Diet: NPO, allow ice chips VTE: SCDs, Lovenox Code: FULL Dispo: Stable, admitted to inpatient on medical floor. Continue to provide fluid resuscitation. Provide pain control. Plan for bowel rest today with advancement of diet later as tolerated. Anticipate LOS >2 days. FMR H&P: Upper Level - Pertinent history 73 year old male presents with a 4-5 week history of decreased appetite, N/V. Patient states that he was evaluated by PCP and given several medications for an infection. He describes the infection as overgrowth of bad bacteria. The description, along with the number of medications given at the time, leads me to believe patient was treated for H. pylori infection. Patient has not improved since that time. He denies fever, chill, chest pain, shortness of breath. - Pertinent findings General: Alert and oriented x3. No acute distress. HEENT: Dry MM, No oral lesions. EOMI. Card: RRR Resp: No acute respiratory distress Abdomen: Soft, mildly tender to palpation throughout. No rebound or guarding. Ext: No cyanosis or edema. - Plan Date/Time: 11/19/18 0710 I, Clair Myrick, have evaluated this patient and agree with findings/plan as outlined by sports broadcasting internship resident. Pertinent changes/additions are listed here. Acute Pancreatitis - Amylase 193, Lipase 180 - Received fluid bolus with 1L NS in both [facility] & [facility] - Received 12 mg total Morphine - NPO - Morphine 4mg q4h prn for pain control - Adjust pain control once home med rec - Maintenance IV LR @ 200 mL/h - Vitals q4hr - Strict I/Os - CT abdomen in [facility], report pending - If diarrhea continues, consider stool studies - Will check H. pylori stool antigen given questionable history of recent tx for H. pylori Acute Kidney Injury - BUN 65, Cr 2.3 per ED report - 2L NS given so far - Continue IV LR @ 200 ml/h Dehydration, moderate - Maintenance IVF - NPO diet d/t pancreatitis Diet: NPO VTE: SCDs, Lovenox Code: FULL Dispo: Admit to medical. Anticipate LOS >48 hours. Addendum - Attending - Attending Attestation Date/Time: 11/20/18 2561 I personally evaluated the patient and discussed the management with Dr. Hussein on 11/19/18 I agree with the History, Examination, Assessment and Plan documented above with any addition or exceptions noted below - 73 yo male with h/o HTN, HLD, glucose intolerance presents with 3-4 week h/o of progressive abdominal, N/V, and inability to tolerate po. Denies any fever/chills. (+) loose stools x 1 day. Sent as transfer from [facility] for possible pancreatitis. PMH/PSH/All/SH reviewed and agree with resident's documentation. Afebrile VSS. Exam repeated by me and agree with resident's findings. Abs- epigastric tenderness; mi;d RUQ tenderness; no rebound or guarding. CT Abd from [facility] with distended gallbladder with gallstones. Lipase mildly elevated. A/P: 1) ?Mild pancreatitis versus elevation from N/V - NPO for now; continue IVF. Will check RUQ USG due to gallstones seen on CT scan. 2) HTN- continue home meds. Adjust as needed.
[2018-11-19] MEDS ORDERED: Lactated Ringer's 1,000 ML IV SCH (07:15)
[2018-11-19] MEDS: Ondansetron PF 4 MG/2 ML Vial IVP PRN (08:35)
[2018-11-19] MEDS: Enoxaparin Sodium 40 MG/0.4 ML SYRINGE SC SCH (08:35)
[2018-11-19] MEDS: Famotidine/PF 20 mg/2ml Vial SLOW IVP SCH ×2 (08:35→19:59)
[2018-11-19] MEDS: Lactated Ringer's 1,000 ML IV SCH ×4 (08:47→19:49)
[2018-11-19] MEDS ORDERED: Morphine 4 MG/ML VIAL SLOW IVP PRN (10:00)
--- NOTE | 2018-11-19 13:22 | ULT ---
Sonogram right upper quadrant HISTORY: Abdominal pain. Elevated bilirubin. FINDINGS: Gallbladder is distended up to 9.9 cm. Echogenic stones are present within the lumen. No wa ll thickening or pericholecystic fluid. Patient was reportedly not tender over the gallbladder fossa at the time of the exam. Common duct is 0.4 cm. Liver unremarkable without focal mass or intrah epatic biliary dilatation. No free fluid. IMPRESSION: Cholelithiasis. Gallbladder distention is nonspecific in the absence of other abnormalities or sonographic Cueva sig n.
[2018-11-19] MEDS ORDERED: tiZANidine HCl 4 MG TAB PO PRN (19:21)
[2018-11-19] MEDS ORDERED: Labetalol HCl 100 MG/20 ML VIAL SLOW IVP PRN (19:24)
[2018-11-19] MEDS: Losartan/Hydrochlorothiazide 100 mg/25 mg Tablet PO SCH (19:51)
[2018-11-19] MEDS: Terazosin HCl 5 MG CAP PO SCH (19:53)
[2018-11-19] MEDS: Gabapentin 300 MG CAP PO SCH (19:59)
[2018-11-19] MEDS: Carvedilol 6.25 MG TAB PO SCH (19:59)
[2018-11-19] MEDS: hydrALAZINE 25 MG TAB PO SCH (19:59)
[2018-11-19] MEDS: Atorvastatin Calcium 40 MG TAB PO SCH (19:59)
[2018-11-19] MEDS ORDERED: BUPRENORPHINE HCL 300 MCG PO SCH (21:00)
[2018-11-20] MEDS: Lactated Ringer's 1,000 ML IV SCH ×3 (01:41→20:55)
--- NOTE | 2018-11-20 06:50 | PDOC.FM ---
- Subjective Subjective: NAEO. Patient resting comfortably in bed. States his abdominal pain has completely resolved. He states that he is hungry and has already planned out his meals when he leaves the hospital. He denies any abodminal pain, NVD, chest pain or SOB. Denies any fever/chills. Patient has not had any other episodes of diarrhea. - Objective MAR Reviewed: Yes Vital Signs & Weight: Vital Signs (12 hours) Temp Pulse Resp BP Pulse Ox 11/20/18 04:00 98.2 F 63 16 149/92 H 97 11/20/18 00:00 97.7 F 59 L 16 119/69 95 11/19/18 20:00 98.1 F 66 18 192/80 H 97 11/19/18 19:59 64 Weight Weight 80.286 kg Result Diagrams: 11/20/18 06:18 11/20/18 06:18 Phys Exam - Physical Examination Constitutional: NAD HEENT: moist MMs, sclera anicteric Neck: supple, full ROM Respiratory: clear to auscultation bilateral Cardiovascular: RRR, no significant murmur, no rub Gastrointestinal: soft, non-tender, no distention, positive bowel sounds no rebound, no guarding, neg bradley sign Musculoskeletal: no edema, pulses present Neurological: non-focal, normal sensation, moves all 4 limbs Psychiatric: normal affect, A&O x 3 Skin: no rash, normal turgor, cap refill <2 seconds Dx/Plan (1) BERRY (acute kidney injury) Code(s): N17.9 - ACUTE KIDNEY FAILURE, UNSPECIFIED Status: Acute (2) Acute pancreatitis Code(s): K85.90 - ACUTE PANCREATITIS WITHOUT NECROSIS OR INFECTION, UNSP Status: Acute Qualifiers: Pancreatitis type: unspecified pancreatitis type Acute pancreatitis complication: unspecified Qualified Code(s): K85.90 - Acute pancreatitis without necrosis or infection, unspecified (3) Dehydration, moderate Code(s): E86.0 - DEHYDRATION Status: Acute (4) Cholelithiasis Code(s): K80.20 - CALCULUS OF GALLBLADDER W/O CHOLECYSTITIS W/O OBSTRUCTION Status: Acute - Plan Plan: Acute Pancreatitis - Amylase 193, Lipase 180 - s/p fluid bolus with 1L NS in both [place] & [facility] - Will start cl liquid diet this morning and continue to advance as tolerated - Pain control - patient has not required morphine. Will restart patient's home norco and dc morphine. - Will decrease IVF to 125mls/hr - Vitals q4hr - Strict I/Os - Stool studies neg for any infection. Neg for H pylori Cholelithiasis - Abd US showing distended gallbladder, cholelithiasis, NO GB wall thickness or CBD dilation - Can consider calling gen surg for elective nathalia or patient can f/u outpatient Acute Kidney Injury - BUN 65, Cr 2.3 per ED report -> 44/1.83 on 11/20 - Continue IVFm, PO hydration Dehydration, moderate - Continue IVF, PO hydration as well Diet: cl liquid, will advance as tolerated VTE: SCDs, Lovenox Code: FULL Dispo: Anticipate LOS >48 hours. Case discussed with Dr. Mishra Addendum - Attending - Attending Attestation Date/Time: 11/20/18 1037 I personally evaluated the patient and discussed the management with Dr. Collins. I agree with the History, Examination, Assessment and Plan documented above with any addition or exceptions noted below. Patient doing well this morning,denies pain. I anticipate most of his complaint was not related to pancreatitis (as no imaging or labs suggestive of acute pancreatitis) but instead to his massively distended gallbladder. Labs overall normal today. He is tolerating clear liquids well. Will consult GenSurg about symptomatic cholelithiasis with gallbladder dysfunction. Further mgmt per their recs.
[2018-11-20 07:01] LABS: #Eosinphils 0.2 thou/uL (0.0-0.7); #Lymphocytes 2.2 thou/uL (1.20-3.40); #Monocytes 0.9 thou/uL (0.11-0.59); #Neutrophils 4.9 thou/uL (1.40-6.50); %Basophils 0.5 % (0.0-1.0); %Eosinophils 1.9 % (0.0-10.0); %Monocytes 10.7 % (0.0-10.0); %Neutrophils 59.9 % (42.0-75.0); Hemoglobin 14.9 g/dL (14.0-18.0); Mean Corpuscular HGB CONC 34.2 g/dL (32.0-36.0); Mean Corpuscular Hemoglobin 31.1 pg (27.0-31.0); Mean Corpuscular Volume 90.9 fL (78.0-98.0); Mean Platelet Volume 7.7 fL (7.4-10.4); Platelet Count 140 thou/uL (130-400); RBC Distribution Width 12.2 % (11.5-14.5); White Blood Cell (WBC) Count 8.1 thou/uL (4.8-10.8)
[2018-11-20 07:28] LABS: ALT (SGPT) 21 U/L (8-55); AST (SGOT) 33 U/L (5-34); Albumin 3.5 g/dL (3.4-4.8); Alkaline Phosphatase 62 U/L (40-110); Anion Gap 12 mmol/L (10-20); BUN (Urea Nitrogen) 44 mg/dL (8.4-25.7); Bilirubin, Total 1.2 mg/dL (0.2-1.2); Calc. Creatinine Clearance 42 mL/min (70-130); Calcium 9.3 mg/dL (7.8-10.44); Carbon Dioxide 24 mmol/L (23-31); Chloride 104 mmol/L (98-107); Estimated GFR-MDRD 37; Globulin 2.7 g/dL (2.4-3.5); Glucose 86 mg/dL (83-110); Potassium 4.1 mmol/L (3.5-5.1); Protein, Total 6.2 g/dL (5.8-8.1); Sodium 136 mmol/L (136-145)
[2018-11-20] MEDS: Carvedilol 6.25 MG TAB PO SCH ×2 (08:19→20:49)
[2018-11-20] MEDS: Gabapentin 300 MG CAP PO SCH (08:19)
[2018-11-20] MEDS: hydrALAZINE 25 MG TAB PO SCH ×3 (08:20→20:49)
[2018-11-20] MEDS: Citalopram 10 MG TAB PO SCH (08:20)
[2018-11-20] MEDS: Losartan/Hydrochlorothiazide 100 mg/25 mg Tablet PO SCH ×2 (08:21→20:49)
[2018-11-20] MEDS: Famotidine/PF 20 mg/2ml Vial SLOW IVP SCH (08:23)
[2018-11-20] MEDS: Enoxaparin Sodium 40 MG/0.4 ML SYRINGE SC SCH (08:26)
[2018-11-20 11:32] VITALS: BMI 29.3
[2018-11-20] MEDS ORDERED: FLU VACC TS2019-20(65YR UP)/PF 180 MCG/0.5 ML SYRINGE IM ONE (11:45)
[2018-11-20] MEDS ORDERED: Prevnar 13-Val Conj/PF 0.5 ML SYRINGE IM ONE (11:45)
--- NOTE | 2018-11-20 14:29 | CON ---
DATE OF CONSULTATION: 11/20/2018 REQUESTING PHYSICIAN: Stefania Collins MD HISTORY OF PRESENT ILLNESS: This is a 73-year-old man, who was admitted yesterday following a 6-week history of epigastric abdominal pain. The pain was usually exacerbated by eating and recently has become more progressive, now associated with frequent flatulence and multiple episodes of nonbilious emesis. The patient denies any fevers or chills. He admits to diarrhea over the last 2 weeks, which is controlled with fasting. PAST MEDICAL HISTORY: Pertinent for essential hypertension, chronic back pain, hyperlipidemia, coronary artery disease, and chronic depression. PAST SURGICAL HISTORY: Pertinent for right knee arthroplasty and cervical spinal surgery x2. SOCIAL HISTORY: He is a retired occupational medicine officer. He denies any cigarette smoking, ethanol, or illicit drug abuse. FAMILY HISTORY: Noncontributory for this patient's age. PREHOSPITALIZATION MEDICATIONS: Include: 1. Atorvastatin 40 mg p.o. daily. 2. Belbuca 1 film p.o. b.i.d. 3. Carvedilol 6.25 mg p.o. b.i.d. 4. Citalopram 10 mg p.o. daily. 5. Gabapentin 300 mg p.o. t.i.d. 6. Hydralazine 50 mg p.o. t.i.d. 7. Hydrocodone 10 mg p.o. q.4 hours p.r.n. pain. 8. Isosorbide mononitrate 120 mg p.o. daily. 9. Losartan 100 mg p.o. b.i.d. 10. Terazosin 5 mg p.o. at bedtime. 11. Tizanidine 4 mg p.o. p.r.n. ALLERGIES: LORAZEPAM. REVIEW OF SYSTEMS: Ten-point review of systems is essentially unremarkable except as stated in past medical history and chief complaint. PHYSICAL EXAMINATION: GENERAL: This reveals a 73-year-old, normally-developed man, who is otherwise coherent, interactive, and appears stated age. The patient is alert and oriented x3, appears to be in no acute distress at the time of my evaluation. VITAL SIGNS: Include blood pressure 157/89, pulse is 79, respiratory rate is 20, temperature 98.3 degrees Fahrenheit, oxygen saturation 96% on room air. HEENT: Reveals normocephalic and atraumatic. Pupils are equal, round, and reactive to light and accommodation. Extraocular muscles are intact bilaterally. He has no scleral icterus present. HEART: Reveals regular rate and rhythm. No murmurs or gallops auscultated. LUNGS: Clear to auscultation bilaterally. Breathing is regular and nonlabored. ABDOMEN: Soft. Moderately distended with gas, but nontender to palpation. Liver and spleen are nonpalpable below costal margin. EXTREMITIES: Reveal 2+ radial and pedal pulses bilaterally. No ankle edema is present. NEUROLOGIC: Reveals no focal deficits present. LABORATORY FINDINGS: Include CBC with 8100 white blood cells. Hemoglobin and hematocrit 14.9 and 43.6 respectively. Platelet count 140,000. Metabolic profile; sodium 136, potassium is 4.1, chloride is 104, bicarb is 24, BUN 44, creatinine is 1.83, glucose 86, total bilirubin is 1.2, AST and ALT are normal at 33 and 21 respectively. Serum lipase is also normal at 44. Note that the pertinent laboratory findings from [place] prior to transfer yesterday included white blood cell count of 12,800. BUN and creatinine at that time were 65 and 2.3 respectively. Serum lipase was mildly elevated at 180. I have personally reviewed the radiographic studies including abdominal ultrasound, which reveals a markedly distended gallbladder at almost 10 cm in length. Multiple small stones aggregating at the gallbladder neck. No pericholecystic fluid or gallbladder wall thickening is noted. Common bile duct is normal for this patient's age at 4.4 mm in diameter. IMPRESSION: 1. Resolved acute gallstone pancreatitis. 2. Resolving acute versus chronic cholecystitis with cholelithiasis. RECOMMENDATIONS: 1. We will obtain HIDA scan to definitively characterize the biliary function and cystic ductal patency. 2. We will consider laparoscopic cholecystectomy if indicated by the HIDA scan. 3. Should laparoscopic cholecystectomy be undertaken, the patient is advised of the potential risks and benefits of the proposed surgery to include, but not limited to bleeding, infection, injury to bile duct or surrounding structures. 4. The patient indicates understanding of information provided. 5. I have answered his questions. Thank you again Dr. Collins for allowing me the opportunity to participate in the care of this patient. Job ID: [id number]
--- NOTE | 2018-11-20 16:59 | NM ---
Exam: Nuclear medicine HIDA scan with ejection fraction HISTORY: Evaluate for cystic duct obstruction TECHNIQUE: Patient measures 5.1 mCi of technetium 99m mebrofenin intravenously. Ejection fraction was determined in the patient was administered 8 ounces of ensure, orally ingested. FINDINGS: Appropriate uptake of the radiotracer by the hepatic parenchyma. Localization of the radiotracer in t he gallbladder as early as 9 minutes. Passage of radiotracer from the common bile duct into small bowel loops. Gallbladder ejection fraction: 19% IMPRESSION: 1. No scintigraphic evidence of acute cholecystitis. 2. Passage of radiotracer from the common bile duct into small bowel loops, implying patency. 3. Decreased gallbladder ejection fracture. Correlate for a calculus cholecystitis/gallbladder dyskin esia.
[2018-11-20] MEDS: Terazosin HCl 5 MG CAP PO SCH (20:49)
[2018-11-20] MEDS: Atorvastatin Calcium 40 MG TAB PO SCH (20:49)
[2018-11-20] MEDS: Ondansetron PF 4 MG/2 ML Vial IVP PRN (20:49)
[2018-11-20] MEDS: HYDROcodone/Acetaminophen 10/325 mg Tablet PO PRN (20:56)
[2018-11-20] MEDS ORDERED: Gabapentin 300 MG CAP PO SCH (21:00)
[2018-11-21] MEDS: Ondansetron PF 4 MG/2 ML Vial IVP PRN (02:24)
[2018-11-21] MEDS: Lactated Ringer's 1,000 ML IV SCH ×2 (05:03)
[2018-11-21] MEDS: Carvedilol 6.25 MG TAB PO SCH (05:03)
[2018-11-21] MEDS ORDERED: Fentanyl 250 MCG/5 ML VIAL ONE (06:15)
[2018-11-21] MEDS ORDERED: Bupivacaine HCl 0.5%/Epinephrine 1:200,000/PF 30 ml Vial ONE (06:33)
[2018-11-21] MEDS ORDERED: Bupivacaine/Epinephrine 0.25% 30 ML VIAL ONE (06:37)
--- NOTE | 2018-11-21 06:56 | PDOC.FM ---
- Subjective Subjective: NAEO. Patient seen in the PACU after cholecystectomy. He was complaining some of abdominal pain at the surgical site. Patient was ready to start eating something. - Objective MAR Reviewed: Yes Vital Signs & Weight: Vital Signs (12 hours) Temp Pulse Resp BP BP Pulse Ox 11/21/18 05:03 121/63 11/20/18 20:49 79 141/80 H 11/20/18 20:45 96 11/20/18 20:00 98.3 F 79 18 141/80 H 96 Weight Admit Weight 80.286 kg Weight 79.968 kg I&O: 11/19/18 11/20/18 11/21/18 06:59 06:59 06:59 Intake Total 2100 Balance 2100 Result Diagrams: 11/20/18 06:18 11/20/18 06:18 Phys Exam - Physical Examination Constitutional: NAD HEENT: moist MMs, sclera anicteric Neck: supple, full ROM Respiratory: clear to auscultation bilateral Cardiovascular: RRR, no significant murmur, no rub Gastrointestinal: soft, non-tender, positive bowel sounds mild distention Musculoskeletal: no edema, pulses present Neurological: non-focal, moves all 4 limbs Psychiatric: normal affect, A&O x 3 Skin: no rash, normal turgor, cap refill <2 seconds Dx/Plan (1) BERRY (acute kidney injury) Code(s): N17.9 - ACUTE KIDNEY FAILURE, UNSPECIFIED Status: Acute (2) Acute pancreatitis Code(s): K85.90 - ACUTE PANCREATITIS WITHOUT NECROSIS OR INFECTION, UNSP Status: Acute Qualifiers: Pancreatitis type: unspecified pancreatitis type Acute pancreatitis complication: unspecified Qualified Code(s): K85.90 - Acute pancreatitis without necrosis or infection, unspecified (3) Dehydration, moderate Code(s): E86.0 - DEHYDRATION Status: Acute (4) Cholelithiasis Code(s): K80.20 - CALCULUS OF GALLBLADDER W/O CHOLECYSTITIS W/O OBSTRUCTION Status: Acute - Plan Plan: Acute Pancreatitis vs symptomatic cholelithiasis Amylase 193, Lipase 180 at outside ED. s/p fluid bolus with 1L NS in both [place] & [facility] - Will restart patient's home norco and dc morphine. - Continue IVF due to procedure today. - Stool studies neg for any infection. Neg for H pylori. Cholelithiasis - Abd US showing distended gallbladder, cholelithiasis, NO GB wall thickness or CBD dilation - Gen surg consulted. Appreciate recs. HIDA scan showing gallbladder ejection fracture 19%, correlate with dyskinesia. S/p cholecystectomy 11/21. Will monitor patient's pain. Possible dc later today pending clinical course. Acute Kidney Injury - BUN 65, Cr 2.3 per ED report -> 44/1.83 on 11/20 - Continue IVFm, PO hydration. Dehydration, moderate - Continue IVF, PO hydration as well Diet: NPO; will restart diet after procedure and advance as tolerated VTE: SCDs Code: FULL Dispo: Anticipate LOS >48 hours. Possible DC later today after procedure Case discussed with Dr. Mishra Addendum - Attending - Attending Attestation Date/Time: 11/21/18 1103 I personally evaluated the patient and discussed the management with Dr. Collins. I agree with the History, Examination, Assessment and Plan documented above with any addition or exceptions noted below. Patient s/p lap nathalia. He is having some pain but otherwise doing well. Escalate diet per GenSurg recs. D/C once cleared by surgery.
[2018-11-21] MEDS ORDERED: Sodium Chloride 0.9% 100 ML ONE (07:19)
[2018-11-21] MEDS ORDERED: cefOXitin 2 GM VIAL ONE (07:19)
[2018-11-21] MEDS ORDERED: Promethazine HCl 25 MG/ML VIAL IM PRN (08:08)
[2018-11-21] MEDS ORDERED: Ondansetron HCl/PF 4 MG/2 ML Vial IVP PRN (08:08)
[2018-11-21] MEDS ORDERED: Promethazine HCl 25 MG/ML VIAL SLOW IVP PRN (08:08)
[2018-11-21] MEDS ORDERED: Fentanyl 100 MCG/2 ML VIAL ONE ×2 (09:23→09:42)
--- NOTE | 2018-11-21 10:17 | OP ---
DATE OF PROCEDURE: 11/21/2018 PREOPERATIVE DIAGNOSIS: Acute on chronic cholecystitis. POSTOPERATIVE DIAGNOSIS: Acute on chronic cholecystitis. PROCEDURE PERFORMED: Laparoscopic cholecystectomy. ANESTHESIA: General endotracheal. ESTIMATED BLOOD LOSS: 10 mL. FLUIDS GIVEN: 1000 mL crystalloids. COUNTS: Sponge and instrument counts were verified as correct x2. COMPLICATIONS: None apparent at the time of operation. INDICATIONS FOR OPERATION: A 73-year-old man presented with recurrent epigastric to right upper quadrant abdominal pain of 6 weeks' duration and worsened over the past 1 week prior to admission. Clinical and radiographic examinations were consistent with acute on chronic cholecystitis for which the patient was brought to the operating room for cholecystectomy. FINDINGS: Consistent with markedly dilated gallbladder, partially encased by omental adhesions. DESCRIPTION OF PROCEDURE: Informed consent was obtained from the patient, who was brought to the operating room and placed in supine position. Following general anesthesia, abdomen was sterilely prepped and draped in usual fashion. The skin below the umbilicus was infiltrated with 0.25% Marcaine with epinephrine. A small curvilinear infraumbilical incision made using 11 scalpel. Umbilical stalk grasped with Min and elevated. Veress needle was inserted through incision and placed in the peritoneal cavity through which the abdomen was insufflated with 3 L of CO2 gas. Intra-abdominal pressure was noted at 2 mmHg. Following abdominal insufflation, Veress needle was removed and a 5 mm trocar introduced using a Visiport under laparoscopy. Laparoscopy confirmed proper placement of the port. No injuries to underlying structures. Additional laparoscopy revealed the right upper quadrant partially obscured by omental adhesions. Under direct laparoscopy, a 12 mm epigastric and two 5 mm right lateral subcostal ports were placed after the overlying skin were infiltrated with 0.25% Marcaine with epinephrine and appropriate incision was made. The patient was placed in a reverse Trendelenburg position, rotated to his left. I introduced a [place] dissector with cautery using this to take down omental adhesions. Prestige grasper introduced through the right lateral subcostal port grasping the fundus of the gallbladder, which was elevated cephalad. Omental adhesions were then dissected off the remainder of the gallbladder. A second Prestige grasper introduced through the right medial subcostal port grasping the Patsy's pouch, which was retracted laterally. Cystic duct was carefully dissected free from surrounding structures at the triangle of Calot. Critical view was obtained. The duct was divided between clips applying 2 clips proximally and 1 clip at the junction of the cystic duct and gallbladder. Cystic artery dissected free from surrounding structures and divided between clips in a similar fashion. Gallbladder itself was removed from the liver bed using cautery and passed off the operative field using an EndoCatch. Operative site was inspected for good hemostasis. All clips remained in place. Finding no other pathology laparoscopy was terminated. Fascia of the epigastric port was closed using 0 Vicryl suture and Endoclosure device on the laparoscopy. The abdomen was desufflated. All ports and instruments removed and accounted for. Skin incision was closed using 4-0 Monocryl suture in subcuticular fashion. Dermabond was applied over incisional closure. The patient tolerated the operation without any apparent complication and was returned to recovery room in satisfactory condition. Job ID: [id number]
[2018-11-21] MEDS: Citalopram 10 MG TAB PO SCH (11:21)
[2018-11-21] MEDS: hydrALAZINE 25 MG TAB PO SCH ×2 (11:21→15:45)
[2018-11-21] MEDS: Enoxaparin Sodium 40 MG/0.4 ML SYRINGE SC SCH (11:21)
[2018-11-21] MEDS: Acetaminophen 325 MG TAB PO SCH ×2 (11:22→15:45)
[2018-11-21] MEDS: Losartan/Hydrochlorothiazide 100 mg/25 mg Tablet PO SCH (11:22)
[2018-11-21] MEDS: HYDROcodone/Acetaminophen 10/325 mg Tablet PO PRN (13:09)
[2018-11-21 16:40] VITALS: BP 141/70; TEMP 98.6
--- NOTE | 2018-11-22 20:17 | DIS ---
DATE OF ADMISSION: 11/19/2018 DATE OF DISCHARGE: 11/21/2018 RESIDENT: Stefania Collins MD ADMITTING ATTENDING: Ruth Swan MD DISCHARGE ATTENDING: Joce Mishra MD. CONSULTS: General Surgery. PROCEDURES: Laparoscopic cholecystectomy on 11/21/2018. DISCHARGE MEDICATIONS: 1. Terazosin 5 mg oral at bedtime. 2. Hydralazine 50 mg oral 3 times daily. 3. Atorvastatin 40 mg oral at bedtime. 4. Losartan/HCTZ 100mg oral twice daily. 5. Tizanidine 4 mg oral as needed. 6. Imdur ER one tablet oral daily. 7. Colerain 1 tablet oral every 4 hours as needed. 8. Gabapentin 1 tablet oral 3 times daily. 9. Celexa 1 tablet oral daily. 10. Coreg 1 tablet oral twice daily. 11. Buprenorphine one film oral twice daily. DISCONTINUED MEDICATION: None. PRIMARY DIAGNOSES: 1. Acute pancreatitis versus symptomatic cholelithiasis. 2. Acute kidney injury. 3. Moderate dehydration. SECONDARY DIAGNOSES: Hypertension, hyperlipidemia, coronary artery disease, chronic pain, glucose intolerance, and depression. HISTORY OF PRESENT ILLNESS/HOSPITAL COURSE: This is a 73-year-old male who presented to the ER as a transfer from [facility] with complaints of abdominal pain, nausea, and dry heaving. For the past 4 weeks, the patient states that he had had increasing abdominal pain that originated in the epigastric area, but was becoming more generalized. The patient also endorsed nausea any time he tried to eat and drink anything as well as dry heaving. The patient stated that he had not had a good meal in 5 weeks. Over the last month, he had lost approximately 20 pounds. The patient saw his PCP and he was told that he had a stomach infection and was treated with tetracycline course with the last dose on , 11/16/2018. The patient stated he is taking a probiotic as well. The patient denied any fever or chills. He did have occasional diarrhea that was initially 3 or 4 weeks ago , but had resolved. In the ER, the patient was given fluids and morphine. A CT abdomen and pelvis was negative for any abnormality. The patient was found to have an amylase of 193 and a lipase of 180. The patient was kept n.p.o. He is admitted to the medical inpatient floor. He was continued on IV fluids. A stool H pylori antigen was tested and was negative. The patient's acute kidney injury resolved after fluids. A right upper quadrant ultrasound was performed that showed gallbladder distention. No dilated common bile duct or gallbladder wall thickening. The patient also had normal liver enzymes as well as the total bilirubin. General Surgery was consulted at this point, as it was thought that the patient's abdominal pain may be likely due to the patient's distended gallbladder. A HIDA scan was performed that showed an ejection fraction of 19%, decreased; but no evidence of acute cholecystitis. The patient was taken to the OR by General Surgery for a laparoscopic cholecystectomy on 11/21/2018. The patient tolerated the procedure well. After the procedure, the patient was able to ambulate, tolerate p.o., and passed gas. He was discharged in stable condition. DISPOSITION: Stable. DISCHARGE INSTRUCTIONS: 1. Location: Home. 2. Diet: Heart healthy. 3. Activity: Ad abhishek. 4. Follow up with PCP within 7 days. Follow up with Dr. Burnett within two weeks. Job ID: [id number] [facility]
== END 2018-11-21 16:48 | disposition home or self-care (01) | DRG 417 ==
LOC: ERS 04:37 → T4-B 06:00
PROVIDERS: ADMIT Family Medicine; ATTEND Family Medicine
PROC: 0FT44ZZ Resection of Gallbladder, Percutaneous Endoscopic Approach (ICD-10-PCS; principal; 2018-11-21)
DX: K80.12 Calculus of gallbladder with acute and chronic cholecystitis without obstruction (principal); K85.10 Biliary acute pancreatitis without necrosis or infection; N17.9 Acute kidney failure, unspecified; I10 Essential (primary) hypertension; E78.5 Hyperlipidemia, unspecified; I25.10 Atherosclerotic heart disease of native coronary artery without angina pectoris; G89.29 Other chronic pain; F32.9 Major depressive disorder, single episode, unspecified; E86.0 Dehydration; M54.9 Dorsalgia, unspecified; Z96.651 Presence of right artificial knee joint; Z88.8 Allergy status to other drugs, medicaments and biological substances; Z79.899 Other long term (current) drug therapy
CPT/HCPCS: 36415; 76705; 78227; 80053; 83690; 85025; 87045; 87046; 87324; 87338; 87427; 87449; 88304; 93005; 93010; 96361; 96374; A9537; J0670; J0694; J1650; J2270; J2405; J3010; J3490; S0028

== ENCOUNTER 2018-11-28 11:56 | Emergency (ER) | payer MEDICARE ==
[2018-11-28 12:58] LABS: #Eosinphils 0.3 thou/uL (0.0-0.7); #Lymphocytes 1.8 thou/uL (1.20-3.40); #Monocytes 0.7 thou/uL (0.11-0.59); #Neutrophils 6.5 thou/uL (1.40-6.50); %Basophils 0.2 % (0.0-1.0); %Eosinophils 2.8 % (0.0-10.0); %Lymphocytes 19.7 % (21.0-51.0); %Monocytes 7.8 % (0.0-10.0); %Neutrophils 69.5 % (42.0-75.0); Hemoglobin 14.9 g/dL (14.0-18.0); Mean Corpuscular Hemoglobin 31.2 pg (27.0-31.0); Mean Corpuscular Volume 91.9 fL (78.0-98.0); Platelet Count 215 thou/uL (130-400); Red Blood Cell (RBC) Count 4.78 mill/uL (4.70-6.10); White Blood Cell (WBC) Count 9.3 thou/uL (4.8-10.8)
[2018-11-28 13:20] LABS: ALT (SGPT) 22 U/L (8-55); AST (SGOT) 22 U/L (5-34); Albumin 4.3 g/dL (3.4-4.8); Alkaline Phosphatase 78 U/L (40-110); Anion Gap 14 mmol/L (10-20); BUN (Urea Nitrogen) 15 mg/dL (8.4-25.7); Bilirubin, Total 0.7 mg/dL (0.2-1.2); CK (CPK) 77 U/L (30-200); Calc. Creatinine Clearance 0 mL/min (70-130); Carbon Dioxide 26 mmol/L (23-31); Chloride 101 mmol/L (98-107); Estimated GFR-MDRD 44; Globulin 3.3 g/dL (2.4-3.5); Glucose 111 mg/dL (83-110); Lipase 46 U/L (8-78); Potassium 4.2 mmol/L (3.5-5.1); Protein, Total 7.6 g/dL (5.8-8.1); Sodium 137 mmol/L (136-145)
[2018-11-28 13:37] LABS: Bilirubin Negative (Negative); Blood, Urine Negative (Negative); Clarity Clear (Clear); Glucose, Urine (Dipstick) Normal (Negative); Leukocyte Negative Leu/uL (Negative); Nitrite Negative (Negative); Protein, Urine (Dipstick) Negative (Neg-Trace); Urobilinogen Normal mg/dL (Less than 2)
--- NOTE | 2018-11-28 14:05 | CT ---
CT Abdomen Pelvis W Con: 11/28/2018 12:49 PM CLINICAL INFORMATION: Abdominal pain and vomiting; recent cholecystectomy COMPARISON: None. TECHNIQUE: Multiple contiguous axial images were obtained and a CT of the abdomen and pelvis with IV contrast. C oronal and sagittal reformats were performed. FINDINGS: Lower Chest: within normal limits. Abdomen: Liver: within normal limits. Bile Ducts: Normal caliber. Gallbladder: Removed Pancreas: within normal limits. Spleen: within normal limits. Adrenals: within normal limits. Kidneys: Nonobstructing right renal calcifications measuring up to 3 mm in size. Pelvis: Reproductive Organs: No pelvic masses. Ureters: within normal limits. Bladder: within normal limits. Peritoneum: No ascites or free air, no fluid collection. Bowel: Normal caliber. Mesentery and Retroperitoneum: No enlarged mesenteric or retroperitoneal lymph nodes. Vessels: Atherosclerotic calcifications. Abdominal Wall: There is subcutaneous air along the right chest wall and upper abdominal wall from re cent cholecystectomy Bones: Degenerative changes and postsurgical changes in the spine. IMPRESSION: 1. Nonobstructing right renal calcifications 2. Postsurgical changes along the abdominal/chest wall without acute intra-abdominal/pelvic abnormali ty.
[2018-11-28] MEDS ORDERED: Ondansetron PF 4 MG/2 ML Vial ONE (14:34)
[2018-11-28] MEDS ORDERED: Morphine 4 MG/ML VIAL ONE (14:34)
== END 2018-11-28 15:26 | disposition home or self-care (01) ==
LOC: ERS 11:56
DX: R10.30 Lower abdominal pain, unspecified (principal); R10.816 Epigastric abdominal tenderness; R10.811 Right upper quadrant abdominal tenderness; I10 Essential (primary) hypertension; R73.03 Prediabetes; F32.9 Major depressive disorder, single episode, unspecified; Z79.891 Long term (current) use of opiate analgesic; Z79.899 Other long term (current) drug therapy
CPT/HCPCS: 36415; 74177; 80053; 81003; 82550; 83690; 85025; 86140; 96361; 96374; 96375; J2270; J2405

== ENCOUNTER 2019-03-13 20:30 | Outpatient (CLI) | payer MEDICARE | END 2019-03-13 20:31 | disposition home or self-care (01) | LOC: SLEEPLAB 20:30 | PROVIDERS: ATTEND Internal Medicine Critical Care Medicine | DX: G47.33 Obstructive sleep apnea (adult) (pediatric) (principal) | CPT/HCPCS: 95811 ==

== ENCOUNTER 2019-04-05 10:14 | Outpatient (CLI) | payer MEDICARE ==
--- NOTE | 2019-04-05 10:34 | RAD ---
Exam: XR Shoulder Rt 3 View STANDARD HISTORY: Right shoulder pain. COMPARISON: None FINDINGS: Right glenohumeral osteoarthropathy as well as mild right acromioclavicular joint osteoarthritis are seen. Postsurgical changes lower cervical spine are noted related to anterior cervical fusion. Degenerative changes are seen in the thoracic spine. No acute fracture, dislocation, or other acute osseous abnormality is identified. Views of the right shoulder not significantly changed when compared to prior views of the right shoul nadja obtained from [facility] on 06/20/2017. Mild prominence of the right paramediastinal soft tissues, but this is similar to a chest x-ray on . IMPRESSION: 1. Right glenohumeral osteoarthropathy and right acromioclavicular joint osteoarthritis. 2. No acute osseous abnormality right shoulder.
== END 2019-04-05 10:15 | disposition home or self-care (01) ==
LOC: BICRAD 10:14
PROVIDERS: ATTEND Nurse Practitioner Family
DX: M25.511 Pain in right shoulder (principal); M25.811 Other specified joint disorders, right shoulder; M19.011 Primary osteoarthritis, right shoulder

== ENCOUNTER 2019-04-24 09:59 | Outpatient (CLI) | payer MEDICARE ==
--- NOTE | 2019-04-24 11:59 | CT ---
CT OF THE ABDOMEN AND PELVIS WITH IV CONTRAST INDICATION: History of diarrhea and nausea vomiting COMPARISON: CT abdomen pelvis with contrast dated November 28, 2018 FINDINGS: ABDOMEN: Lung bases: Clear Liver: No focal lesion. Gallbladder: Surgically absent Pancreas: Normal. Adrenal glands: Normal. Spleen: Normal. Kidneys and ureters: There is a 2.8 mm calculus at the right UVJ without significant hydronephrosis. There is renal contrast excreted within the renal calyces limiting evaluation for additional nonobstructing renal calculi. Vasculature: There are mild vascular calcifications seen involving the visualized vasculature. Lymph nodes:No lymphadenopathy. Free fluid in abdomen:No free fluid is evident. PELVIS: Small and large bowel: There are scattered colonic diverticula involving the colon without evidence o f active diverticulitis. The colon is largely decompressed. Small bowel is of normal caliber. Appendix:Not definitely seen Bladder: Decompressed Rectal and perirectal soft tissues:Normal. Reproductive structures: Prostate is enlarged measuring 6.7 cm Free fluid in pelvis: No free fluid is evident. Lymphadenopathy pelvis: No lymphadenopathy is evident. Osseous structures: No acute osseous abnormality. No destructive osteolytic or osteoblastic lesion i s identified. There is scattered degenerative and osteoarthritic changes. The degenerative, gas-filled, subchondral cystlike abnormality seen within the posterior right ilium is stable. This is adjacent to the right SI joint. There is postprocedural change involving the lower lumbar spine which is stable appearing. Soft tissues:Normal. IMPRESSION: 1. 2.8 mm calculus at the right UVJ without significant hydronephrosis. Findings called to Dr. Izaguirre at 11:55 AM on April 24, 2019. 2. No additional acute abnormality.
[2019-04-24] MEDS ORDERED: Iopamidol-370 76% 500 ML 1 ML ONE (14:43)
== END 2019-04-24 10:00 | disposition home or self-care (01) ==
LOC: BICCT 09:59
PROVIDERS: ATTEND Internal Medicine Gastroenterology
DX: R11.2 Nausea with vomiting, unspecified (principal); R10.13 Epigastric pain; R19.7 Diarrhea, unspecified; R63.4 Abnormal weight loss; N20.1 Calculus of ureter
CPT/HCPCS: 74177; 82565; Q9967

== ENCOUNTER 2019-06-29 07:04 | Outpatient (CLI) | payer MEDICARE, OTHER ==
[2019-06-29 19:38] LABS: SARS-CoV-2 MS2 Positive; SARS-CoV-2 N Gene Negative; SARS-CoV-2 S Gene Negative; SARS-CoV-2 orf1ab Negative
== END 2019-06-29 07:05 | disposition home or self-care (01) ==
LOC: LABBT 07:04
PROVIDERS: ATTEND Internal Medicine Gastroenterology
DX: Z01.812 Encounter for preprocedural laboratory examination (principal); Z11.59 Encounter for screening for other viral diseases; R19.7 Diarrhea, unspecified; R10.13 Epigastric pain; R11.2 Nausea with vomiting, unspecified; R63.4 Abnormal weight loss
CPT/HCPCS: 87635; U0003

== ENCOUNTER 2019-07-04 06:29 | Day surgery (SDC) | payer MEDICARE ==
[2019-06-29 09:49] VITALS: BMI 29.6
--- NOTE | 2019-07-04 09:44 | OP ---
DATE OF PROCEDURE: 07/04/2019 PROCEDURE PERFORMED: Esophagogastroduodenoscopy with biopsy and colonoscopy with snare polypectomy. PREOPERATIVE DIAGNOSES: Epigastric pain, nausea, vomiting, and 30-pound weight loss. DESCRIPTION OF PROCEDURE: Informed consent was obtained from the patient. He was sedated with total intravenous anesthesia. The bite block was placed and the endoscope was advanced easily to the second portion of the duodenum and retroflexion was performed in the stomach. The esophagus was normal. The GE junction was normal. The stomach had diffuse erythematous gastritis. Biopsies were taken from the antrum and body to rule out H. pylori. Retroflexed views in the stomach were otherwise normal. The pylorus and first and second portions of the duodenum were normal. The patient was turned around. Rectal exam was performed and was normal. The colonoscope was advanced to the cecum, where the ileocecal valve and appendiceal orifice were clearly identified. I removed a 2 mm polyp from the proximal side of the ileocecal valve by cold biopsy forceps. I removed a 7 mm polyp from the hepatic flexure by snare cautery polypectomy. I removed 2 polyps from the sigmoid colon measuring 4 mm and 5 mm by hot snare. The remainder of the colonic mucosa was normal. Retroflexed views in the rectum were normal. IMPRESSION: 1. Diffuse erythematous gastritis, biopsied to rule out Helicobacter pylori. 2. Otherwise normal esophagogastroduodenoscopy. 3. 2 mm cecum polyps removed by cold biopsy forceps. 4. A 7 mm hepatic flexure polyp was removed by hot snare. 5. Two small sigmoid polyps were removed by hot snare. 6. Otherwise normal colonoscopy. 7. The patient's abdominal pain and nausea have since resolved. He is gaining weight back again. He had a CT scan that showed a kidney stone at the junction between the ureter and bladder, and he did see Urology regarding that. His serology was negative for celiac disease. Liver tests were normal. CBC was unremarkable. Hemoglobin was 17.2 with upper limit normal of 17. RECOMMENDATIONS: 1. Await histopathology. 2. Repeat colonoscopy in 3 years, if 3 or more of the polyps are adenomas. 3. Repeat colonoscopy in 5 years, if 1 or 2 of the polyps are adenomas. 4. Repeat colonoscopy in 10 years, if all 4 polyps are hyperplastic. 5. He can follow up in GI Clinic as needed. Job ID: [id number]
[2019-07-04] MEDS ORDERED: Lidocaine 1% PF 5 ML VIAL ONE (12:44)
[2019-07-04] MEDS ORDERED: PROPOFOL 200 MG/20 ML VIAL ONE (12:44)
[2019-07-04] MEDS ORDERED: Calcium Chloride 1 GM/10 ML Abboject SYRINGE ONE (12:44)
[2019-07-04] MEDS ORDERED: Glycopyrrolate 0.2 MG/ML 5 ML SYRINGE ONE (12:44)
== END 2019-07-04 10:27 | disposition home or self-care (01) ==
LOC: SDC 06:29
PROVIDERS: ATTEND Internal Medicine Gastroenterology
PROC: 0DB78ZX Excision of Stomach, Pylorus, Via Natural or Artificial Opening Endoscopic, Diagnostic (ICD-10-PCS; principal; 2019-07-04)
PROC: 0DBH8ZX Excision of Cecum, Via Natural or Artificial Opening Endoscopic, Diagnostic (ICD-10-PCS; 2019-07-04)
PROC: 0DBN8ZX Excision of Sigmoid Colon, Via Natural or Artificial Opening Endoscopic, Diagnostic (ICD-10-PCS; 2019-07-04)
PROC: 0DBL8ZX Excision of Transverse Colon, Via Natural or Artificial Opening Endoscopic, Diagnostic (ICD-10-PCS; 2019-07-04)
DX: D12.0 Benign neoplasm of cecum (principal); K63.5 Polyp of colon; K29.50 Unspecified chronic gastritis without bleeding; N20.0 Calculus of kidney; I10 Essential (primary) hypertension; E78.5 Hyperlipidemia, unspecified; M19.90 Unspecified osteoarthritis, unspecified site; F32.9 Major depressive disorder, single episode, unspecified; E78.00 Pure hypercholesterolemia, unspecified; R63.4 Abnormal weight loss; Z68.29 Body mass index [BMI] 29.0-29.9, adult; Z79.899 Other long term (current) drug therapy
CPT/HCPCS: 88305; 88312; J2001; J2704